=== PATIENT | female | born 1975 | race Two or more races ===

== ENCOUNTER 2018-07-17 10:41 | Emergency (ER) | payer BC ==
[~2018-07-17] VITALS: Ht 180.3 cm; Wt 72.1 kg
--- NOTE | 2018-07-17 10:50 | NUR ---
BIB SELF W C/O ABDOMINAL PAIN, N/V TODAY, TO ER BED 16, HOOKED TO MONITOR, AWAITING MD FERRERA
[2018-07-17] MEDS ORDERED: IV NS 0.9% 1,000 ML BAG IV ONE (11:00)
[2018-07-17] MEDS ORDERED: ONDANSETRON HCL/PF 4 MG/2 ML VIAL IVP ONE (11:00)
--- NOTE | 2018-07-17 11:00 | NUR ---
REFUSED IV INSERTION. MADE AWARE
[2018-07-17] MEDS ORDERED: ONDANSETRON 4 MG TAB.RAPDIS ONE (11:15)
[2018-07-17 11:18] LABS: BASOPHILS % (AUTO) 0.4 % (0.0-2.0); EOSINOPHILS % (AUTO) 0.7 % (0.0-6.0); HEMATOCRIT 50 % (33-45); HEMOGLOBIN 17.1 g/dL (11.5-14.8); LYMPHOCYTES # (AUTO) 0.7 /CMM (0.8-4.8); LYMPHOCYTES % (AUTO) 6.4 % (20.0-44.0); MEAN CORPUSCULAR HGB CONC 34 g/dl (31.0-36.0); MEAN CORPUSCULAR VOLUME 100 fL (82-100); MONOCYTES # (AUTO) 0.4 /CMM (0.1-1.30); MONOCYTES % (AUTO) 3.8 % (2.0-12.0); NEUTROPHILS # (AUTO) 9.3 /CMM (1.8-8.9); NEUTROPHILS % (AUTO) 88.7 % (43.0-81.0); PLATELET COUNT (AUTO) 243 /CMM (150-450); RED BLOOD CELL COUNT(AUTO) 5.04 MIL/uL (4.0-5.2); WHITE BLOOD COUNT (AUTO) 10.4 K/uL (4.3-11.0)
[2018-07-17 11:26] LABS: CALCIUM, SERUM 9.9 mg/dL (8.5-10.1); CREATININE 0.9 mg/dL (0.6-1.3)
[2018-07-17] MEDS ORDERED: ONDANSETRON 4 MG TAB.RAPDIS SL ONE (11:30)
[2018-07-17 11:33] LABS: ALBUMIN 3.7 g/dL (3.4-5.0); BILIRUBIN,DIRECT 0.1 mg/dL (0.0-0.2); BILIRUBIN,TOTAL 0.5 mg/dL (0.2-1.0); TOTAL PROTEIN, SERUM 7.7 g/dL (6.4-8.2)
--- NOTE | 2018-07-17 11:57 | NUR ---
Patient discharged to home in stable condition. Written and verbal after care instructions given. Patient verbalizes understanding of instruction.
[2018-07-17 11:59] VITALS: BP 112/74
== END 2018-07-17 12:00 | disposition home or self-care (01) ==
LOC: ER 10:46
DX: R11.2 Nausea with vomiting, unspecified (principal); K30 Functional dyspepsia; I10 Essential (primary) hypertension
CPT/HCPCS: 36415; 80048-TC; 80076-TC; 84702-TC; 85025-TC; Q0162